=== PATIENT | male | born 1980 | race Caucasian/White ===

== ENCOUNTER 2021-11-11 08:13 | Outpatient (CLI) | payer OTHER, SELFPAY ==
[2021-11-11 13:36] LABS: Albumin* 4.4 g/dL (3.3-5.0)
[2021-11-11 13:39] LABS: Aspartate Amino Transferase* 55 U/L (12-35); Bilirubin Direct* 0.3 mg/dL (0.0-0.5); Bilirubin Total* 1.2 mg/dL (0.1-1.5); Total Protein* 7.2 g/dL (6.0-8.3)
[2021-11-11 13:40] LABS: Alanine Aminotransferase* 118 U/L (4-50); Alkaline Phosphatase* 56 U/L (40-150)
== END 2021-11-11 08:14 | disposition home or self-care (01) ==
LOC: LONREF 08:15
PROVIDERS: PCP Family Medicine; Visit Provider Family Medicine
DX: E13.9 Other specified diabetes mellitus without complications (principal); K76.0 Fatty (change of) liver, not elsewhere classified
CPT/HCPCS: 80076

== ENCOUNTER 2022-03-04 13:20 | Outpatient (CLI) | payer OTHER, SELFPAY | END 2022-03-04 13:21 | disposition home or self-care (01) | LOC: INJ CL 13:21 | PROVIDERS: PCP Family Medicine; Visit Provider Family Medicine | DX: M54.16 Radiculopathy, lumbar region (principal); M51.36 Other intervertebral disc degeneration, lumbar region | CPT/HCPCS: 62323; J0702; Q9966 ==

== ENCOUNTER 2022-05-30 08:20 | Outpatient (CLI) | payer OTHER, SELFPAY ==
[2022-05-30 14:00] LABS: Chloride* 103 mmol/L (96-114); Potassium* 4.5 mmol/L (3.6-5.1); Sodium* 138 mmol/L (135-149)
[2022-05-30 14:02] LABS: Cholesterol* 153 mg/dL (90-199); Creatinine* 0.7 mg/dL (0.5-1.5); Estimated Glomerular Filt Rate 117 ml/min
[2022-05-30 14:03] LABS: Blood Urea Nitrogen* 16 mg/dL (5-24); Calcium* 9.3 mg/dL (8.4-10.6); Carbon Dioxide* 30 mmol/L (20-32); Glucose* 121 mg/dL (60-115); Triglycerides* 109 mg/dL (40-149)
[2022-05-30 14:04] LABS: HDL Cholesterol* 53 mg/dL (>=40); LDL Cholesterol Calculated 78 mg/dL (<100)
== END 2022-05-30 08:21 | disposition home or self-care (01) ==
PROVIDERS: PCP Family Medicine; Visit Provider Family Medicine
DX: E78.5 Hyperlipidemia, unspecified (principal); I10 Essential (primary) hypertension
CPT/HCPCS: 80048; 80061

== ENCOUNTER 2023-02-17 06:28 | Emergency (ER) | payer OTHER, SELFPAY ==
[2023-02-17 06:35] VITALS: BP 160/94; PULSE 75; RESP 16; TEMP 36.6; O2SAT 95; BMI 35.6
--- NOTE | 2023-02-17 06:47 | CRLHL7_ITS ---
For Patients: As a result of the Cures Act, medical imaging exams and procedure reports are released immediately into your electronic medical record. You may view this report before your referring provider. If you have questions, please contact your health care provider. Indication: Trauma. Technique: Three views right shoulder. Comparison: None. Findings: Bones: No fracture. Joint spaces: Borderline widening of the acromioclavicular joint. Soft tissues: Unremarkable. Impression: No acute fracture. Borderline widening of the acromioclavicular joint. Correlate for low-grade AC joint injury. Dictated by Hussein Emerson MD @ 02/17/2023 7:37:34 AM (Electronically Signed)
[2023-02-17] MEDS: IBUPROFEN 400 MG TABLET 800 MG PO (06:55)
--- NOTE | 2023-02-17 07:21 | ED_ITS ---
HPI - General Adult General Chief complaint: Shoulder Injury/Pain Stated complaint: R shoulder injury Time Seen by Provider: 02/17/23 06:29 Source: patient and family Mode of arrival: ambulatory Limitations: no limitations History of Present Illness HPI narrative: 42-year-old male with a history of hypertension and diabetes presents the emergency department for evaluation of right shoulder pain. The 1st snow fall of the year has brought a significant amount of ice unfortunately, he slipped on his own sidewalk while he was going to his truck this morning at approximately 5:45 a.m. which is about 1 hour prior to arrival. He slipped, believes that he fell backwards on outstretched hand. Did not hit his head or lose consciousness. He reports that he was able to get up on his own account and walk himself back into the house. Has persistent pain in the right deltoid area. Difficulty moving hand. Some numbness and tingling in the hand but mostly positional. No neck pain, no headache, no vision changes. He did call his for help. No suspicion for loss of consciousness. He did not try taking any medication prior to coming to the ED, no Tylenol, no ibuprofen. He does take a low-dose aspirin every day. No prior history of shoulder surgery or dislocation. No pain in the elbow, wrist or hand. No other areas of injury. Pain is constant and achy, does not radiate. No prior similar symptoms. Past medical history notable for obesity, hypertension, hyperlipidemia. Home medications amlodipine, aspirin, atorvastatin, fluoxetine, lisinopril, hydrochlorothiazide, metformin ROS notable for the musculoskeletal symptoms as above. Denies other generalized, neurological, skin, respiratory, cardiovascular symptoms. Related Data Home Medications Medication Instructions Recorded Confirmed ascorbic acid (vitamin C) 1,000 mg 1 g PO DAILY 11/11/21 12/19/22 capsule aspirin 81 mg tablet,delayed 81 mg PO QDAY 12/19/22 02/17/23 release (Adult Aspirin Regimen) Previous Rx's Medication Instructions Recorded amlodipine 5 mg tablet 5 mg PO DAILY #90 tabs 12/19/22 amoxicillin 875 mg-potassium 1 tab PO BID #14 tabs 12/19/22 clavulanate 125 mg tablet atorvastatin 40 mg tablet 40 mg PO .Bedtime #90 tabs 12/19/22 fluoxetine 20 mg capsule 20 mg PO DAILY #90 caps 12/19/22 lisinopril 20 2 tab PO DAILY #180 tabs 12/19/22 mg-hydrochlorothiazide 12.5 mg tablet metformin 750 mg tablet,extended 1,500 mg (2 x 750 mg) PO QPM #180 12/19/22 release 24 hr tabs phentermine 37.5 mg tablet 37.5 mg PO QDAY #30 tabs 12/21/22 oxycodone 5 mg tablet 5 mg PO Q6H PRN pain #20 tabs 02/17/23 Allergies Allergy/AdvReac Type Severity Reaction Status Date / Time No Known Allergies Allergy Verified 02/17/23 06:34 PFSH PFSH Medical History H/O finger fracture ?Z87.81 - Personal history of (healed) traumatic fracture (ICD-10) Tobacco use (11/10/12) ?Z72.0 - Tobacco use (ICD-10) Deep vein thrombosis (11/17/08) ?I82.409 - Acute embolism and thrombosis of unspecified deep veins of unspecified lower extremity (ICD-10) Surgical History H/O toe surgery ?Z98.890 - Other specified postprocedural states (ICD-10) Status post arthroscopy of left knee (11/17/08) ?Z98.890 - Other specified postprocedural states (ICD-10) History of bilateral inguinal hernia repair (11/10/12) ?Z98.890 - Other specified postprocedural states (ICD-10) ?Z87.19 - Personal history of other diseases of the digestive system (ICD-10) Social History Smoking Status: Former smoker Exam Const: Vital Signs, click to edit/add: Vital Signs - 24 hr 02/17/23 06:35 Temperature 97.8 F Pulse Rate [Pulse Oximeter] 75 Respiratory Rate 16 Blood Pressure [Ri ght Upper Arm] 160/94 H Pulse Oximetry 95 Oxygen Delivery Me thod Room Air Documenting provider has reviewed patient's vital signs: yes Common normals: no apparent distress and alert General appearance: cooperative, c omfortable and well kempt Orientation/consciousness: Yes awake HENMT: Common normals: normocephalic and head/scalp atraumatic Head and scalp: normocephalic and atraumatic Face and sinus: normal facial exam Mouth: oral and palatal mucosa normal Throat: posterior oropharynx normal Eye: Common normals: PERRL, EOMs intact bilaterally and conjunctivae normal General eye: normal appearance of both eyes Conjunctiva: conjunctiva(e) normal Pupil: PERRL Neck & C-Spine: Common normals: full ROM and no lymphadenopathy Cervical spine: cervical ROM normal; no cervical spine tenderness Resp: Common normals: normal respiratory effort, no use of accessory muscles and clear to auscultation bilaterally Effort & inspection: able to speak in complete sentences Auscultation: clear to auscultation bilaterally Cardio: Common normals: regular rate, regular rhythm, S1 normal heart sound, S2 normal heart sound and no murmurs Rate: regular rate Rhythm: regular rhythm Heart sounds: S1 normal and S2 normal Extremity: Other: Both wrists have normal radial pulses and capillary refill in the hand. The left shoulder appears grossly normal with normal range of motion. The right shoulder is very guarded. The contour of the shoulder looks a bit sunken and anteriorly oriented. No bruising. Body habitus does limit quick identification of bony landmarks. Palpation does not reveal any bony tenderness to the clavicle or acromion. He has difficulty with flexion extension and abduction at the shoulder. Normal range of motion at the elbow, wrist and hand with normal strength and sensation. I do not advance my exam, pending x-ray. Neuro: Sensorium/orientation: awake and alert Gait (neuro): normal gait Psych: Appearance: well kempt Attitude: engaged Insight: insight good Judgement: judgment good Skin: Common normals: no rashes or lesions noted General skin exam: no rashes or lesions noted Course Course ED Course: Differential diagnosis including right shoulder dislocation, rotator cuff tear, AC injury, sprain, fracture among others. Prior to any other significant manipulation of shoulder, recommend x-ray. Offered pain medication, patient would like to try something mild. Start with ibuprofen 800 mg p.o. x1, referred for x-ray, await findings. Reevaluation(s) Time of Reevaluation #1: 07:55 Reevaluation #1: Counseled patient on x-ray findings. Concern for possible shoulder. I was able to re-examine the shoulder now that I am confident that there is no fracture or dislocation. He still really resists range of motion. He has actually developed a little bit more of an effusion and has tenderness over that AC joint as expected but also some tenderness at the pectoralis insertion. I do not feel any obvious bony abnormality at the insertion site. Pain increases with internal rotation. Rotator cuff is very difficult to examine due to his discomfort. There is no severe laxity that would suggest complete disruption. Recommended sling, Ortho follow-up. Discussed pain control with Tylenol and ibuprofen. Unfortunately the roads are extremely IC. Will give oxycodone from [employer] [facility] and also 1 tablet now. I have also sent a small supply to his pharmacy. Discussed Tylenol and ibuprofen dosing. He will be off work for today. I have written work restrictions for the next 2 weeks. Any further restrictions will need to come from Ortho pending their follow-up. The referral is placed. Restrictions basically dictate that he can only lift up to 10 lb and do left-handed work only. 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 I did discuss this with him. If his employer confined appropriate alternative were, it is within the right to do so as long as it meets the restrictions I have outlined. Alarm symptoms reviewed that would warrant repeat ED presentation including loss of function of the hand, weakness or severe increase in pain. He verbalizes understanding and agreement. He may need additional imaging such as MRI. It is difficult to tell right now because of swelling and tenderness. Awaiting orthopedic input. Will likely heal without surgical intervention, discussed. Vital Signs Vital signs: Initial Vital Signs Temperature 97.8 F 02/17/23 06:35 Temperature Source Temporal Artery Scan 02/17/23 06:35 Pulse Rate 75 02/17/23 06:35 Respiratory Rate 16 02/17/23 06:35 Blood Pressure 160/94 H 02/17/23 06:35 Blood Pressure Mean 116 H 02/17/23 06:35 Pulse Oximetry 95 02/17/23 06:35 Oxygen Delivery Method Room Air 02/17/23 06:35 Vital Signs Temperature 97.8 F 02/17/23 06:35 Pulse Rate 75 02/17/23 06:35 Respiratory Rate 16 02/17/23 06:35 Blood Pressure 160/94 H 02/17/23 06:35 Pulse Oximetry 95 02/17/23 06:35 Oxygen Delivery Method Room Air 02/17/23 06:35 Temperature 97.8 F 02/17/23 06:35 Pulse Rate 75 02/17/23 06:35 Respiratory Rate 16 02/17/23 06:35 Blood Pressure 160/94 H 02/17/23 06:35 Pulse Oximetry 95 02/17/23 06:35 Oxygen Delivery Method Room Air 02/17/23 06:35 Medical Decision Making Imaging Data Shoulder x-ray: Attestation: I have reviewed the pertinent imaging results. My impression: No fracture or dislocation Radiologist's impression: Impression: No acute fracture. Borderline widening of the acromioclavicular joint. Correlate for low-grade AC joint injury. Discharge Plan Discharge Clinical Impression: Pectoralis muscle strain, shoulder Patient Disposition: Home, Self-Care Condition: Stable Instructions: Shoulder Sprain (ED) Additional Instructions: As we discussed, your x-ray looks good. No dislocation or fracture. Based on exam, you seem to have evidence of what we call a shoulder. This is an injury to the ligament of the acromioclavicular part of the shoulder, or the top part rather than the ball and socket. Unfortunately, these are common. I do not see evidence of a severe injury that would require surgery. These are fairly painful but do tend to heal without complication. You will need to follow up with the compliance specialist for further care. To start, we will put you in a sling to help stabilize the shoulder. For pain, I recommend Tylenol 1000 mg every 6 hours and or ibuprofen 600 mg every 6 hours. I will also give you a small supply of oxycodone to use if the pain is severe. I am hoping that you mostly just need this at night. I do recommend ice to the painful top part of the shoulder with o'clock to protect the skin, applied for 15 minutes about every 3-4 hours while awake. Do not sleep with ice on. I will write work restrictions for the next 2 weeks. The orthopedic doctor will update these when you see them in the clinic. They should call you within the next couple of days to set up an appointment. If things are healing well, nothing further will likely need to be done. If not, they may recommend an MRI, physical therapy or other treatment. As discussed, you may have a little bit of numbness to the skin but you should still have normal range of motion and strength in the hand and wrist. If you have severe pain and or weakness in the hand, you should come back to the emergency department. It is okay to remove the sling for a couple of minutes to gently move the shoul alejandra around to prevent stiffness as we discussed. It may be more helpful to sleep in a recliner or other elevated type of surface for comfort. It is okay to use melatonin or your prescribed medications for sleep also. Activity Level: Light activity Discharge Diet: Diabetic Prescriptions: New oxycodone 5 mg tablet 5 mg PO Q6H PRN (Reason: pain) Qty: 20 0RF No Action aspirin [Adult Aspirin Regimen] 81 mg tablet,delayed release (DR/EC) 81 mg PO QDAY amlodipine 5 mg tablet 5 mg PO DAILY Qty: 90 3RF atorvastatin 40 mg tablet 40 mg PO .Bedtime Qty: 90 3RF fluoxetine 20 mg capsule 20 mg PO DAILY Qty: 90 3RF lisinopril-hydrochlorothiazide 20-12.5 mg tablet 2 tab PO DAILY Qty: 180 3RF metformin 750 mg tablet extended release 24 hr 1,500 mg PO QPM Qty: 180 3RF amoxicillin-pot clavulanate 875-125 mg tablet 1 tab PO BID Qty: 14 0RF phentermine 37.5 mg tablet 37.5 mg PO QDAY Qty: 30 2RF Rx Instructions: must administer 30 minutes before or 1-2 hours after breakfast ascorbic acid (vitamin C) 1,000 mg capsule 1 g PO DAILY Follow Up/Referrals: Nilesh Cotto MD [Staff Physician] - 7 Days (1st available Ortho in 5-10 days) Mihai Boogie MD [Primary Care Provider] - Stand Alone Forms: [employer] Info Instructions
[2023-02-17] MEDS: OXYCODONE 5 MG TABLET PO (08:05)
== END 2023-02-17 08:22 | disposition home or self-care (01) ==
PROVIDERS: Emergency Provider Family Medicine; PCP Family Medicine
DX: S29.011A Strain of muscle and tendon of front wall of thorax, initial encounter (principal); S43.51XA Sprain of right acromioclavicular joint, initial encounter; W00.0XXA Fall on same level due to ice and snow, initial encounter
CPT/HCPCS: 73030; 99284; A9270

== ENCOUNTER 2023-05-18 06:01 | Day surgery (SDC) | payer OTHER, SELFPAY ==
[2023-05-18] VITALS (15 sets, daily range): BP systolic 123–142; BP diastolic 68–94; PULSE 67–80; RESP 16–22; TEMP 36–37; O2SAT 91–98; BMI 34.8
--- OUTSIDE RECORDS SUMMARY | 2023-05-18 06:04 | XMS_ITS | Continuity of Care Document ---
Author Name Unknown Organization [facility] Address [address] [place] [address] Phone Care Team Providers Care Aids Counselor Name Role Phone Elissa MALDONADO, Vicki Unavailable Unavailable Allergies, Adverse Reactions, Alerts Substance Reaction Status Criticality No Known Allergies Active No Inform ation Medications Medication Instructions Dosage Effective Dates (start - stop) Status Comments Naproxen Oral Tablet 500 MG TAKE ONE TABLET BY MOUTH TWICE A DAY WITH MEALS - Active AMLODIPINE BESYLATE (unknown strength) Not Available - Active FLUOXETINE HCL (unknown strength) Not Available - Active LISINOPRIL-HYDROC HLOROTHIAZIDE (unknown strength) Not Available - Active TIZANIDINE HCL (unknown strength) Not Available - Active VITAMIN C (unknown strength) Not Available - Active LIPITOR (unknown strength) Not Available - Active NORCO (unknown strength) Not Available - Active naproxen 500 mg tablet take 1 tablet by oral route 2 times every day with food 500 MG - No Longer Active Procedures Procedure Date Office/Outpatient Visit,New, Mod 2021 Office/Outpatient Visit,New, Mod 2016 Advance Directives Directive Yes / No Effective Date File Name No Information Encounters Encounter Description Practice Location Reason(s) For Visit Diagnoses Date Provider Providers Copied on Encounter [facility], [address], [place], [id number], [place] tel:[phone] [facility] No Information Elissa Gates [facility], [address], [place], [id number], [place]. tel:[phone] Office/Outpati ent Visit,Breonna Garcia [facility], [address], [place], [id number], [place] tel:[phone] [facility] - [facility] No Information Elissa Brooksr. [facility], [address], [place], [id number], [place]. tel:[phone] Referring Provider: Tiago Sanchez, [facility] [address] [facility], [place], [address]. tel:[phone] Office/Outpati ent Visit,Breonna Garcia [facility], [address], [place], [id number], [place] tel:[phone] [facility] Low back pain Elissa Cohen. [facility] [place], [address], [place], [id number], [place]. tel:[phone] Referring Provider: [facility]ago Sanchez, [facility] [address] [facility], [place], [address]. tel:[phone] Family History Family Member Type Diagnosis Age At Onset Problem (finding) Problem (finding) Payers Payer name Insurance type Covered constitution party ID Authorchristophera glenn(s) Risk Administration Service [id number] [facility] [id number] Social History Type Description Quantity Date Captured Comments Sex Male Smoking Status No Information Chief Complaint And Reason For Visit No Information Reason For Referral Reason For Referral No Information History Of Present Illness Encounter Date Complaint History Of Prese nt Illness No Information Functional Status Date Functional Assessmen t No Information Instructions Date Instruction Additional Infor mation Weight Management Education Rela keegan to Overweight Weight management: I nstructed to return to General Practitioner timeframe: 1 Month. Related to Overweight Assessments Type Assessment Date No Information Patient Care Teams Name Effective Dates (start - stop) Status Members No Information
--- OUTSIDE RECORDS SUMMARY | 2023-05-18 06:04 | XMS_ITS | Continuity of Care Document ---
Author Name Unknown Organization [facility] Address [address] [place] [address] Phone Care Team Providers Care Public Health Educator Name Role Phone Elissa MALDONADO, Vicki Unavailable [...] Copied on Encounter [facility], [address], [place], [id number], [place] tel:[phone] [facility] No Information Elissa Gates [facility], [address], [place], [id number], [place]. tel:[phone] Office/Outpati ent Visit,Breonna Garcia [facility], [address], [place], [id number], [place] tel:[phone] [facility] - [facility] No Information Elissa Brooksr. [facility], [address], [place], [id number], [place]. tel:[phone] Referring Provider: Tiago Sanchez, [facility] [address] [facility], [place], [address]. tel:[phone] Office/Outpati ent Visit,Breonna Garcia [facility], [address], [place], [id number], [place] tel:[phone] [facility] Low back pain Elissa Cohen. [facility] [place], [address], [place], [id number], [place]. tel:[phone] Referring Provider: Tiago Sanchez, [employer] [facility] [address] [facility], [place], [address]. tel:[phone] Family History Family Member Type Diagnosis Age At Onset Problem (finding) Problem (finding) Payers Payer name Insurance type Covered republican ID Authorchristophera glenn(s) Risk Administration Service [id number] [facility] [id number] Social History Type Description Quantity Date Captured [...]
--- OUTSIDE RECORDS SUMMARY | 2023-05-18 06:04 | XMS_ITS | Clinical Summary ---
Author Name Unknown Organization [facility] Address [place], [place] [address] Care Team Providers Care Correctional Counselor Name Role Phone Kristan Smith DO Primary Care Provider [phone] Allergies No known active allergies Medications Medication Sig Dispensed Refills Start Date End Date Status atorvastatin (LIPITOR) 40 mg tablet Take 1 tablet by mouth once daily. 0 07/14/2016 Active ascorbic acid, vitamin C, (VITAMIN C) 1,000 mg tablet Take 1 tablet by mouth once daily. 0 07/17/2016 Active lisinopril-hydrochl orothiazide 20-12.5 mg tablet (PRINZIDE) Take 2 Tablets by mouth once daily. 0 06/22/2019 Active FLUoxetine (PROZAC) 20 mg capsule 0 05/18/2019 Active amLODIPine (NORVASC) 5 mg tablet Take 5 mg by mouth once daily. 0 02/01/2021 Active diclofenac topical (VOLTAREN) 1 % gelIndications:Lumb ar disc herniation,Acute midline low back pain with left-sided sciatica Apply 2 g topically to affected area(s) 4 times daily. 50 g 5 02/22/2021 Active metFORMIN (GLUCOPHAGE XR) 750 mg Extended-Release tablet TAKE TWO TABLETS BY MOUTH DAILY WITH EVENING MEAL. 0 09/03/2021 Active tiZANidine (ZANAFLEX) 4 mg tabletIndications:L umbar disc herniation,Lumbosac ral radiculopathy at L4 Take 1 Tablet (4 mg) by mouth every 6 hours if needed for Muscle Spasm. 12 Tablet 0 02/17/2022 Active HYDROcodone-acetami nophen (NORCO) 5-325 mg per tabletIndications:L umbar disc herniation,Lumbosac ral radiculopathy at L4 Take 1 Tablet by mouth every 6 hours if needed for Pain. Max acetaminophen dose: 4000 mg in 24 hrs. 24 Tablet 0 02/17/2022 Active Active Problems Problem Noted Date Diagnosed Date Factor V Leiden mutation 05/08/2023 Essential hypertension 06/23/2017 Lumbar disc herniation 10/23/2016 Lumbosacral radiculopathy at L4 10/23/2016 Depression with anxiety 07/28/2016 Encounters Date Type Department Care Team Description 05/08/2023 9:20 AM PHYSICS TEACHER Preop Visit [facility] [address] [place] [address] Kirstan Smith, DO Preoperative Exam (Work comp DOI: 02/17/23 - R rotator cuff repair - [facility] - Dr. Benson 05/18/23) 05/08/2023 Travel 04/06/2023 8:20 AM PHYSICS TEACHER Office Visit [facility] [address] [place] [address] Tiago Douglas MD [facility] (W/C follow up back date of injury:03/01/16) 04/06/2023 Travel 03/02/2023 Orders Only [facility] Scanner 1 scan: (1-Ord) INCOMING RECORDS-[facility]YE, [facility], 03/02/2023 from Last 3 Months Immunizations Name Administration Dates Next Due MMR 06/23/1995 Pneumococcal Poly,23-Valent (Pneumovax) 11/12/19 22 Td (Age >=7 Years) 06/23/1995 Tdap 04/21/2017,07/23/2007 Family History Medical History Relation Name Comments Good Health Brother Good Health Father Good Health Mother Good Health Sister Relation Name Status Comments Brother Father Mother Sister Social History Tobacco Use Types Packs/Day Years Used Date Smoking Tobacco: Former Cigarettes 1 10 0 07/2006 - 07/2016 Smokeless Tobacco: Never Tobacco Cessation:Counseling Given: Yes Comments:quit first of the year Alcohol Use Standard Drinks/Week Comments Yes 3 (1 standard drink = 0.6 oz pur e alcohol) 2 beers per week PHQ-2 Answer Date Recorded PHQ-2 Score 0 06/20/2018 Social Connections Answer Date Recorded Frequency of Communication with Friends and Fami ly Not on file 04/15/2021 Financial Resource Strain Answer Date R ecorded Difficulty of Paying Living Expenses Not on file 04/15/2021 Difficulty of Paying Living Expenses Not on file 04/15/2021 Sex and Gender Information Value Date Recorded Sex Assigned at Not on file Gender Identity Not on file Sexual Orientation Not on file Obstetrics History Last Filed Vital Signs Vital Sign Reading Time Taken Comments Blood Pressure 133/80 05/08/2023 9:44 AM PHYSICS TEACHER Pulse 74 05/08/2023 9:17 AM PHYSICS TEACHER Temperature 36.9 ??C (98.4 ??F) 10/16/2022 7:47 AM CD T Respiratory Rate 20 02/21/2022 2:56 PM CDT Oxygen Saturation 97% 05/08/2023 9:17 AM PHYSICS TEACHER Inhaled Oxygen Concentration - - Weight 123.3 kg (271 lb 14.4 oz) 05/08/2023 9:17 AM PHYSICS TEACHER Height 186.8 cm (6' 1.54) 02/18/2021 7:45 AM CD T Body Mass Index 35.35 02/18/2021 7:45 AM CDT Plan of Treatment Upcoming Encounters Date Type Department Care Team (Late st Contact Info) Description 07/06/2023 7:40 AM CDT Office Visit [facility] [address] [place] [address] Kristan Smith DO [address] [place] [address] 10/05/2023 7:40 AM CDT Office Visit [facility] [address] [place] [address] Tiago Douglas MD [address] [place] [address] Health Maintenance Due Date Last Done Comments COVID-19 vaccine series (#1) 1978 HIV for age 15-65 1993 Hepatitis C screening for age 18-79 1996 Depression screening for age 12+ 06/22/2018 06/22/2017, 09/01/2016, 07/28/2016, Additional history exists BMI (ht and wt on same day) for age 18+ 02/18/2022 02/18/2021, 06/22/2018, 06/22/2017, Additional history exists Influenza for age 9-49 12/19/2022 Colonoscopy through age 75 2023 Lipids for age 45-75 2023 Tetanus booster 04/21/2027 04/21/2017, 04/0 07/2007, 06/23/1995 Tdap Completed 04/21/2017, 07/23/2007 Pneumococcal series for age 6-64 Aged Out 11/11/2021 No longer eligible based on patient's age to complete this topic Procedures Procedure Name Priority Date/Time Associated Diagnosis Comments POTASSIUM Routine 05/08/2023 9:52 AM PHYSICS TEACHER Pre-op exam CBC W PLT NO DIFF Routine 05/08/2023 9:5 2 AM PHYSICS TEACHER Pre-op exam SCAN-EYE EXAM 03/02/2023 12:00 AM PHYSICS TEACHER from Last 3 Months Results * CBC W PLT NO DIFF (05/08/2023 9:52 AM PHYSICS TEACHER) WHITE BLOOD COUNT 5.8 4.5 - 11.0 thou/cu mm 05/08/2023 10:00 AM PHYSICS TEACHER [facility] RED BLOOD COUNT 5.07 4.30 - 5.90 mil/cu mm 05/08/2023 10:00 AM PHYSICS TEACHER [facility] HEMOGLOBIN 15.2 13.5 - 17.5 g/dL 05/08/2023 10:[address] [facility] HEMATOCRIT 43.2 37.0 - 53.0 % 05/08/2023 10:[address] [facility] MCV 85 80 - 100 fL 05/08/2023 10:[address] [facility] MCH 30.0 26.0 - 34.0 pg 05/08/2023 10:[address] [facility] MCHC 35.2 32.0 - 36.0 g/dL 05/08/2023 10:[address] [facility] RDW 12.8 11.5 - 15.5 % 05/08/2023 10:[address] [facility] PLATELET COUNT 233 140 - 440 thou/cu mm 05/08/2023 10:00 AM PHYSICS TEACHER [facility] MPV 9.0 6.5 - 11.0 fL 05/08/2023 10:00 AM PHYSICS TEACHER [facility] Blood BLOOD SPECIMEN / Unknown Venipuncture / Unknown 05/08/2023 9:52 AM PHYSICS TEACHER 05/08/2023 9:54 AM PHYSICS TEACHER Kristan Smith DO HEMATOLOGY [facility] [address] [place] [address], * POTASSIUM (05/08/2023 9:52 AM PHYSICS TEACHER) POTASSIUM 4.6 3.5 - 5.1 mmol/L 05/08/2023 5:15 PM PHYSICS TEACHER [facility] Blood BLOOD SPECIMEN / Unknown Venipuncture / Unknown 05/08/2023 9:52 AM PHYSICS TEACHER 05/08/2023 9:54 AM PHYSICS TEACHER Kristan Smith DO CHEMISTRY [facility] [address] [place] [address], * SCAN-EYE EXAM (03/02/2023 12:00 AM PHYSICS TEACHER) Scanner OTHER from Last 3 Months Care Teams Correctional Counselor Relationship Specialty Start Date End Date Krist[place] [address] [place] [address] PCP - General Family Practice 03/04/22
[2023-05-18] MEDS: SODIUM CHLORIDE 0.9 % (FLUSH) 10 ML SYRINGE IVF (06:20)
[2023-05-18] MEDS: LACTATED RINGERS 1000 ML 1,000 ML 100 ML IV (06:20)
[2023-05-18] MEDS: MIDAZOLAM HCL 1 MG/ML inj IVP (07:00)
[2023-05-18] MEDS: fentaNYL 100 MCG/2 ML inj IVP (07:00)
--- NOTE | 2023-05-18 07:06 | SUR.PREOP ---
TIME?OUT:?0700 PT/Noemy BAUM RN/Pau ZAVALA MDA?VERIFICATION?OF?SURGICAL?SITE,?PROCEDURE,?AND?CONSENT OBTAINED?PRIOR?TO?INVASIVE?PROCEDURE.
[2023-05-18] MEDS: EPINEPHrine 1 MG in SODIUM CHLORIDE IRRIG SOLUTION 3,000 ML 9003 MG IRRIGATION ×5 (07:23→09:25)
[2023-05-18] MEDS: CEFAZOLIN 2 GM in 0.9 % SODIUM CHLORIDE Mini-bag 100 ML IVPB (07:38)
--- NOTE | 2023-05-18 07:44 | W.PM.H&PU ---
History & Physical Update History & Physical Update H&P Reviewed and patient assessed: No changes noted
--- NOTE | 2023-05-18 07:44 | W.PM.NB ---
Nerve Block Nerve Block Time Seen by Provider: 07:02 Date Seen: 05/18/23 Type of block requested by surgeon for post-operative analgesia: supraclavicular Side: right Time out performed: Yes Verification of patient name: Yes Verification of date of : Yes Site marking: site marked Name of person performing procedure: Arnoldo Continuous monitoring Was continuous monitoring of O2 sat, B/P, monitor car operator, recorded every 15 minutes?: Yes Procedure Checklist: sterile prep, needles and gloves Ultrasound guided. Images saved: Yes Medications given in 5ml increments after negative aspiration: Ropivicaine %: 0.5 mL: 20 Needle gauge: 22 Decadron (mg): 10 Precedex (mcg): 25 Patient tolerated procedure well: Yes Block Charges Block Charge (with Pro Fee): Brachial Plexus Use of Ultrasound Machine for Block: Yes- US Guidance/pain block
--- NOTE | 2023-05-18 09:05 | W.ANESCHARGE ---
Anesthesia Charges Start Date/Time Anesthesia Start Date: 05/18/23 Anesthesia Start Time: 07:23 Stop Date/Time Anesthesia Stop Date: 05/18/23 Anesthesia Stop Time: 10:15
--- NOTE | 2023-05-18 10:37 | P.ORPRC_ITS ---
Procedure Note Date of procedure: 05/18/23 Procedure: PREOPERATIVE DIAGNOSES: 1. Right shoulder rotator cuff tear. 2. Right shoulder anterior labral tearing 3. Right shoulder subacromial impingement syndrome. POSTOPERATIVE DIAGNOSES: 1. Right shoulder rotator cuff tear - supraspinatus. 2. Right shoulder anterior labral tearing 3. 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 Right shoulder subacromial impingement syndrome. NAME OF OPERATION: 1. Right shoulder arthroscopic rotator cuff repair. 2. Right shoulder arthroscopic limited glenohumeral debridement 3. Right shoulder arthroscopic bursectomy, subacromial decompression/partial acromioplasty. SURGEON: Nilesh Cotto MD LEGAL FINANCIAL SPECIALIST: Maninder Mancilla PA-C. Of note, a skilled assistant printer floor covering was critical for this case to aide in patient positioning, suture manipulation, arm positioning, instrument positioning, and closure. ANESTHESIA: General plus preoperative supraclavicular block. EBL: 25 mL IMPLANTS: Arthrex 4.75 mm BioComposite SwiveLock suture anchor (x2); Arthrex 2.6 mm knotless FiberTak RC (x2) COMPLICATIONS: None evident INDICATIONS: The patient is a pleasant, 43-year-old male who has experienced right shoulder pain that has been increasing in recent time. Physical exam and imaging were consistent with a rotator cuff tear. Given their findings, as well as the weakness and pain, and inadequate response to nonoperative management, recommendation was made for surgery. FINDINGS: Exam under anesthesia revealed stable shoulder with excellent range of motion. The diagnostic arthroscopy revealed grade 3-4 chondromalacia anterior glenoid with loose chondral flaps adjacent to the anterior labral tear. The Subscapularis tendon was intact and with a healthy attachment. The long head of the biceps tendon was intact. The superior rotator cuff tendon was found to be torn nearly full-thickness through majority the supraspinatus and infraspinatus. It had a very thin/frail attachment on the far lateral/distal aspect of the tendon insertion creating a significant lift off and a near empty greater tuberosity. The labrum was torn in the anterior aspect adjacent to that chondral defects noted. No loose bodies were identified within the pouch or subscapularis recess. PROCEDURE: Following a thorough discussion of risks, benefits, and alternatives, consent was obtained and the right shoulder was marked. The patient was brought to the operating room and placed supine on the operating table. Induction of anesthesia was completed after preoperative supraclavicular block was administered in preop holding. Appropriate time out was performed identifying proper patient, site, and procedure. 2 g IV Ancef was administered within 1 hour of incision preoperatively. The right upper extremity was prepped and draped in the appropriate sterile fashion using ChloraPrep prep. This was after the patient was positioned in the beach chair with their head in neutral alignment and all bony prominences well padded. The shoulder was insufflated with 20mL of normal saline via an 18g spinal needle from a posterior approach. An 11 blade skin incision allowed a blunt trochar to be inserted and diagnostic arthroscopy to be performed with the findings as noted above. An anterior portal was established with an outside in technique. This allowed the probe to be inserted and confirm the diagnostic arthroscopic findings. The shaver was then inserted and allowed debridement of anterior labrum as well as the loose chondral flaps of the anterior glenoid. Following this, the upper border subscapularis was probed and found to be stable. Thereafter, the subacromial space was entered. Here, a complete bursectomy and partial acromioplasty/subacromial decompression was performed with a combination of radiofrequency ablator, the shaver, and a 5.5 mm bur. Further inspection of the supraspinatus and infraspinatus rotator cuff was performed. This identified the tear as noted above. The margins of the tear were debrided, and the greater tuberosity was debrided with a combination of the apollo cautery, shaver, and bur on reverse setting. After gentle decortication, a speed bridge configuration with a medial marcia was engaged. 2 medial 2.6 mm FiberTak RC knotless anchors were placed and the sutures were passed with a fiber link via a suture Lasso as the rotator cuff had fallen both posteriorly and medially. The eyelet suture tails were then retrieved and passed and cinched down for the medial marcia purpose. In addition, 3 marginal convergence sutures were placed along the anterior L-shaped type tear. The last/most lateral of which had the tails also passed into the anterior lateral anchor. A tail from each of the medial row anchor FiberTapes were then brought to a lateral row anchor along with 1 of the tails from the medial marcia. Excellent reapproximation of the tissue to the greater tuberosity was achieved with broad footprint compression. The rotator cuff showed excellent reapproximation of the greater tuberosity with good security upon probing. Prior to anchor regional company truck driver removal, the eyelet sutures were tugged on for each anchor and found that the anchor had excellent stability within the bone. The shoulder was placed through range of motion and found to be stable. The rotator cuff was re-probed and found to be stable. Instruments were removed. Excess fluid was drained, closure performed with 4-0 Monocryl and Steri-Strips. Dressings were applied. Sling was applied. The patient was awoken from anesthesia and transferred to the PACU in stable condition. A skilled assistant printer floor covering was critical for this case to aid in patient positioning, limb positioning, skill to manipulate arthroscopic instruments and camera, suture management, patient safety, and closure. PLAN: 1. Elbow, forearm, wrist and digit range of motion as tolerated. 2. Encouraged ice. 3. Oxycodone for pain as needed. 4. Sling at all times except for ROM and showering. 5. Follow up with PA visit in 1-2 weeks for wound check. Initiate physical therapy following that visit for passive range of motion. Initiate active assisted range of motion at 6-8 weeks. May do pendulums now.
--- NOTE | 2023-05-18 10:45 | W.ANESCHARGE ---
Anesthesia Charges Start Date/Time Anesthesia Start Date: 05/18/23 Anesthesia Start Time: 07:23 Stop Date/Time Anesthesia Stop Date: 05/18/23 Anesthesia Stop Time: 10:15
== END 2023-05-18 12:11 | disposition home or self-care (01) ==
PROVIDERS: PCP Family Medicine; Visit Provider Orthopaedic Surgery Sports Medicine
PROC: (CPT 29805; principal; 2023-05-18 07:30)
DX: M75.101 Unspecified rotator cuff tear or rupture of right shoulder, not specified as traumatic (principal); S43.491A Other sprain of right shoulder joint, initial encounter; M75.41 Impingement syndrome of right shoulder; M94.211 Chondromalacia, right shoulder; G89.18 Other acute postprocedural pain
CPT/HCPCS: 29827; 29826; 29822; 01630; 64415; 76942; 82962; C1713; J0171; J0330; J0690; J1100; J2250; J2405; J2704; J2795; J3010; J7120; L3670

== ENCOUNTER 2024-01-15 09:45 | Outpatient (RCR) | payer OTHER, SELFPAY | END 2024-01-15 12:27 | disposition home or self-care (01) | PROVIDERS: PCP Family Medicine; Visit Provider Orthopaedic Surgery | DX: Z98.890 Other specified postprocedural states (principal); Z51.89 Encounter for other specified aftercare | CPT/HCPCS: 97035; 97110; 97140; 97165; 97530; X5282 ==

== ENCOUNTER 2024-03-31 08:30 | Outpatient (RCR) | payer OTHER, SELFPAY | END 2024-04-22 09:45 | disposition home or self-care (01) | LOC: WKPLHLTH 08:30 | PROVIDERS: PCP Family Medicine; Visit Provider Orthopaedic Surgery Sports Medicine | DX: M75.121 Complete rotator cuff tear or rupture of right shoulder, not specified as traumatic (principal); Z98.890 Other specified postprocedural states; Z02.6 Encounter for examination for insurance purposes; M25.511 Pain in right shoulder; M62.81 Muscle weakness (generalized); M62.521 Muscle wasting and atrophy, not elsewhere classified, right upper arm; Z74.09 Other reduced mobility; Z51.89 Encounter for other specified aftercare | CPT/HCPCS: 97110; 97140; 97163; 97165; 97545; 97750; X5282 ==